=== PATIENT | male | born 1990 | race Caucasian/White ===

== ENCOUNTER → 2016-09-06 | Emergency (ER) | payer MEDICAID ==
[~2016-09-06] VITALS: Ht 167.6 cm; Wt 73.0 kg
[~2016-09-06] MED LIST: AZITHROMYCIN 250 MG TAB PO ONE; CEFTRIAXONE 250 MG INJ IM STA; CEFTRIAXONE 250 MG INJ IVPB STA; CEFTRIAXONE 500 MG INJ IVPB ONE; CIPR500T4 PO; HYDR-906 PO; ONDA4TAB14 PO; ONDANSETRON 4 MG INJ IV STA; SOD CHLORIDE 0.9% 1,000 ML IV STA; morphine 4 MG/ML VIAL IV STA
[2016-09-06 20:47] VITALS: Ht 167.6 cm; Wt 73.0 kg
[2016-09-06 21:56] LABS: ADD UMIC YES; URINE BILIRUBIN (Dip) NEGATIVE (NEGATIVE); URINE BLOOD (Dip) NEGATIVE (NEGATIVE); URINE GLUCOSE (Dip) NEGATIVE (NEGATIVE); URINE KETONES (Dip) NEGATIVE (NEGATIVE); URINE LEUKOCYTE ESTERASE (Dip) TRACE (NEGATIVE); URINE NITRITE (Dip) NEGATIVE (NEGATIVE); URINE TOTAL PROTEIN (Dip) NEGATIVE (NEGATIVE); URINE UROBILINOGEN (Dip) 0.2 E.U./dL (0.1-1.0)
[2016-09-06 22:06] LABS: URINE COLOR YELLOW (YELLOW)
[2016-09-06 22:08] LABS: BACTERIA,URINE FEW; MUCUS,URINE FEW; TRANSITIONAL EPI CELLS,URINE FEW; URINE RBCS 0-2 /HPF (0)
[2016-09-06 22:18] LABS: BASOPHIL # 0.1 10^3/ul (0.0-0.1); BASOPHILS % 0.3 % (0.0-2.0); EOSINOPHILS # 0.2 10^3/ul (0.0-0.5); EOSINOPHILS % 1.1 % (0.0-7.0); HEMATOCRIT 46.3 % (42.0-52.0); HEMOGLOBIN 15.7 g/dl (14.0-18.0); LYMPHOCYTES # 1.9 10^3/ul (0.8-2.9); LYMPHOCYTES % 9.2 % (15.0-51.0); MEAN CORPUSCULAR HEMOGLOBIN 28.4 pg (29.0-33.0); MEAN CORPUSCULAR HGB CONC 33.9 g/dl (32.0-37.0); MEAN CORPUSCULAR VOLUME 83.8 fl (82.0-101.0); MEAN PLATELET VOLUME 7.7 fl (7.4-10.4); MONOCYTE # 1.1 10^3/ul (0.3-0.9); MONOCYTES % 5.7 % (0.0-11.0); NEUTROPHIL # 16.9 10^3/ul (1.6-7.5); NEUTROPHILS % 83.7 % (39.0-77.0); PLATELET COUNT 261 10^3/UL (140-440); RED BLOOD COUNT 5.52 10^6/ul (4.70-6.10); RED CELL DISTRIBUTION WIDTH 13.5 % (11.5-14.5); UNCORRECTED WBC 20.2 10^3/ul (4.8-10.8); WHITE BLOOD COUNT 20.2 10^3/ul (4.8-10.8)
[2016-09-06 22:25] LABS: CONDITION 1; LH ANALYZER COMMENTS 1; SUSPECT 1
[2016-09-06 22:29] LABS: ALBUMIN 5.1 g/dl (3.3-4.9)
[2016-09-06 22:30] LABS: POTASSIUM 4.8 mmol/L (3.5-5.1)
[2016-09-06 22:32] LABS: BILIRUBIN,INDIRECT 0.3 mg/dl (0-1.1); BILIRUBIN,TOTAL 0.3 mg/dl (0.2-1.3); CREATININE 0.71 mg/dl (0.61-1.24)
[2016-09-06 22:33] LABS: ALBUMIN/GLOBULIN RATIO 1.08; TOTAL PROTEIN 9.8 g/dl (6.1-8.1)
--- NOTE | 2016-09-06 22:51 | RADRPT ---
PROCEDURE: CT Abdomen and Pelvis without contrast CLINICAL INDICATION: Abdominal pain TECHNIQUE: Transaxial images were obtained through the abdomen and pelvis on a multi-slice scanner without the intravenous contrast administration. no oral contrast had previously been given. Sagitt al and coronal re-formations were subsequently reconstructed. One or more of the following dose reduction techniques were used: - Automated exposure control. - Adjustment of the mA and/or kV according to patient size. - Use of iterative reconstruction technique. Radiation dose: CTDIvol = 8.6 mGy; DLP = 533.03 mGy-cm. COMPARISON: 08/13/2012 FINDINGS: Lung bases: The visualized lung bases appear unremarkable. Liver: The liver is borderline enlarged with no focal lesion identified. Gallbladder: The wall is not thickened. No radiopaque stones are identified. Bile ducts: The intra and extrahepatic bile ducts are normal in caliber. Pancreas: Appears normal with no mass or inflammation evident. Spleen: Normal in size with no focal lesion. Adrenals: Normal with no mass identified. Kidneys, ureters and bladder: The kidneys are normal in size and there is no mass, pathological calc ification, or hydronephrosis evident. There is no perinephric stranding. The ureters are normal in c aliber and no ureteroliths are identified. The bladder appears unremarkable. Reproductive organs: The prostate is not enlarged. Stomach and bowel: The stomach is moderately distended with food debris. There is substantial stool in the colon but there is no evidence of bowel obstruction or inflammation. Appendix: A normal-appearing vermiform appendix is evident. Peritoneum: No free intraperitoneal fluid or air is identified. Aorta: Normal in caliber with no aneurysmal dilatation. IVC: Unremarkable. Lymph nodes: No pathologically enlarged nodes are identified. Osseous structures: The osseous elements appear intact. IMPRESSION: 1. Borderline hepatomegaly with no focal lesion. This is unchanged from the previous CT of 012. 2. The stomach remains moderately distended with food debris but there is no evidence of bowel obst ruction or inflammation with a normal-appearing vermiform appendix evident. 3. Again there is no evidence of urinary outflow obstruction or ureterolithiasis. The bladder appe ars normal. 4. Otherwise, stable and unremarkable CT scan of the abdomen and pelvis without contrast. Alisa Corado Physician Date Time Electronically viewed and signed by Alisa Corado Physician on 09/06/2016 22:50 RH/
[2016-09-06 23:09] VITALS: BP 144/85; PULSE 72; RESP 16; TEMP 98.4
--- NOTE | 2016-09-07 04:58 | ERD ---
ER Documentation Chief Complaint Date/Time DATE: 09/07/16 TIME: 04:53 Chief Complaint left sided abd pain since 1 hour ago today HPI This is a 25-year-old male presenting to the emergency room complaining of left sided abdominal pain that started a few hours prior to being seen. Patient complains of vomiting 5 times. He denies any diarrhea. He states his last bowel movement was earlier today than normal. Patient denies any medical problems. Denies taking any medications or drugs. He rates his pain 10 out of 10 ROS All systems reviewed and are negative except as per history of present illness. Medications Home Meds Active Scripts Ciprofloxacin Hcl* (Ciprofloxacin Hcl*) 500 Mg Tablet, 500 MG PO BID for 5 Days , TAB Prov:JAKI WALLER PA-C 09/06/16 Ondansetron (Ondansetron Odt) 4 Mg Tab.rapdis, 4 MG PO Q6H Y for NAUSEA AND/OR VOMITING, #20 TAB Prov:JAKI WALLER PA-C 09/06/16 Hydrocodone/Acetaminophen ([place] 5-325 Tablet) 1 Each Tablet, 1-2 TAB PO Q6H Y for PAIN, #20 TAB Prov:JAKI WALLER PA-C 09/06/16 Reported Medications [None] No Conflict Check 08/13/12 Allergies Allergies: Coded Allergies: No Known Allergy (Unverified , 08/13/12) PMhx/Soc Medical and Surgical Hx: pt denies Surgical Hx History of Surgery: No Anesthesia Reaction: No Hx Neurological Disorder: No Hx Respiratory Disorders: No Hx Cardiac Disorders: No Hx Psychiatric Problems: No Hx Miscellaneous Medical Probl: Yes (kidney stones) Hx Alcohol Use: Yes (OOC) Hx Substance Use: No Hx Tobacco Use: Yes Smoking Status: Current every day smoker Physical Exam Vitals Vital Signs Date Time Temp Pulse Resp B/P Pulse Ox O2 Delivery O2 Flow Rate FiO2 09/06/16 23:09 98.4 72 16 144/85 100 Room Air 09/06/16 20:47 96.4 66 20 172/90 100 Physical Exam GENERAL: well-developed/well-nourished, in no apparent distress, non-toxic appearing HENT: NC/AT, moist mucous membranes EYES: Conjunctiva normal NECK: Supple, no lymphadenopathy PULM: CTA bilaterally, no rales, rhonchi, or wheezing heard CV: Normal S1S2, RRR, good capillary refill GI: Soft, non-distended, tender to palpation in left lower quadrant Normal bowel sounds, no masses or organomegaly felt on exam No gross peritonitis, no bruits Negative Rovsing, negative Sylvester, negative McBurney's point, Negative CVAT BACK: No masses EXT: No clubbing, cyanosis, or edema NEURO: Alert and Orientated SKIN: Intact, normal turgor PSYCH: Normal mood and mentation Result Diagram: 09/06/16220409/06/162204 Results 24 hrs Laboratory Tests Test 09/06/16 21:45 09/06/16 22:05 Urine Bacteria FEW Urine Bilirubin NEGATIVE Urine Clarity CLEAR Urine Color YELLOW Urine Glucose NEGATIVE% Urine Hemoglobin NEGATIVE Urine Ketones NEGATIVE Urine Leukocyte Esterase TRACE Urine Microscopic RBC 0-2/HPF Urine Microscopic WBC 25-50/HPF Urine Mucus FEW Urine Nitrite NEGATIVE Urine Specific [place] >=1.030 Urine Total Protein NEGATIVE Urine Transitional Epithelial Cells FEW Urine Urobilinogen 0.2 E.U./dL Urine pH 5.5 Alanine Aminotransferase (ALT/SGPT) 53IU/L Albumin 5.1g/dl Albumin/Globulin Ratio 1.08 Alkaline Phosphatase 69IU/L Anion Gap 21 Aspartate Amino Transf (AST/SGOT) 34IU/L Basophils # 0.110^3/ul Basophils % 0.3% Blood Morphology Comment Blood Urea Nitrogen 21mg/dl Calcium Level 10.0mg/dl Carbon Dioxide Level 31mmol/L Chloride Level 98mmol/L Creatinine 0.71mg/dl Direct Bilirubin 0.00mg/dl Eosinophils # 0.210^3/ul Eosinophils % 1.1% Globulin 4.70g/dl Glucose Level 107mg/dl Hematocrit 46.3% Hemoglobin 15.7g/dl Indirect Bilirubin 0.3mg/dl Lipase 53U/L Lymphocytes # 1.910^3/ul Lymphocytes % 9.2% Mean Corpuscular Hemoglobin 28.4pg Mean Corpuscular Hemoglobin Concent 33.9g/dl Mean Corpuscular Volume 83.8fl Mean Platelet Volume 7.7fl Monocytes # 1.110^3/ul Monocytes % 5.7% Neutrophils # 16.910^3/ul Neutrophils % 83.7% Nucleated Red Blood Cells # 0.010^3/ul Nucleated Red Blood Cells % 0.0/100WBC Platelet Count 63467^3/UL Potassium Level 4.8mmol/L Red Blood Count 5.5210^6/ul Red Cell Distribution Width 13.5% Sodium Level 145mmol/L Total Bilirubin 0.3mg/dl Total Protein 9.8g/dl White Blood Count 20.210^3/ul Current Medications Medications (Trade) Dose Ordered Sig/Lexie Route PRN Reason Start Time Stop Time Status Last Admin Dose Admin Sodium Chloride (NS) 1,000 ml @ 1,000 mls/hr Q1H STAT IV 09/06/16 21:37 09/06/16 22:36 DC 09/06/16 22:08 Morphine Sulfate (morphine) 4 mg ONCE STAT IV 09/06/16 21:37 09/06/16 21:38 DC 09/06/16 22:09 Ondansetron HCl (Zofran Inj) 4 mg ONCE STAT IV 09/06/16 21:37 09/06/16 21:38 DC 09/06/16 22:09 Azithromycin (Zithromax) 1,000 mg ONCE ONCE PO 09/06/16 23:30 09/06/16 23:31 DC 09/06/16 23:46 Ceftriaxone Sodium (Rocephin) 500 mg ONCE ONCE IVPB 09/06/16 23:30 09/06/16 23:30 DC Ceftriaxone Sodium (Rocephin) 250 mg ONCE STAT IM 09/06/16 23:24 09/06/16 23:26 DC Ceftriaxone Sodium (Rocephin) 250 mg ONCE STAT IVPB 09/06/16 23:40 09/06/16 23:41 DC 09/06/16 23:46 Procedures/MDM This is a 25-year-old male presenting to the emergency department complaining of left-sided abdominal pain and vomiting, this is likely due to a gastroenteritis. I have a low suspicion for pancreatitis, cholelithiasis, cholecystitis, pyelonephritis. IV access was established, CBC showed an elevated white count of 20.2 likely due to stress reaction and infection. CMP did not show any evidence of significant renal, liver or electrolyte abnormalities. A urinalysis that showed trace leukocyte esterase with white blood cells. I have consulted Dr. Lucio who stated to treat him for urinary tract infection and STD. Patient was given morphine and Zofran in the ED, I have reassessed patient and he significantly feels better, is able to tolerate p.o. fluids. Patient was given azithromycin, ceftriaxone in the ED. He was given a prescription for Cipro for outpatient. A CT of the abdomen and pelvis was done and radiologist stated - CT abd and pelvis without contrast: 1. Borderline hepatomegaly with no focal lesion. This is unchanged from the previous CT of 08/13/2012. 2. The stomach remains moderately distended with food debris but there is no evidence of bowel obstruction or inflammation with a normal-appearing vermiform appendix evident. 3. Again there is no evidence of urinary outflow obstruction or ureterolithiasis. The bladder appears normal. 4. Otherwise, stable and unremarkable CT scan of the abdomen and pelvis without contrast. I have discussed with patient and family to follow-up with the primary care physician regarding the borderline hepatomegaly. Patient appears well with stable vital signs for discharge. Discussed to follow-up with the primary care physician. Discussed return the ER for any worsening symptoms. Patient understands and agrees with this plan. was consulted and agrees with plan above Departure Diagnosis: Primary Impression: Abdominal pain Abdominal location: unspecified location Qualified Code: R10.9 - Abdominal pain, unspecified location Condition: Fair Patient Instructions: Abdominal Pain, Diet, Vomiting Or Diarrhea [6Yr-Adult], Vomiting And Diarrhea, Nonspecific (Adult) Referrals: [facility] YOU HAVE RECEIVED A MEDICAL SCREENING EXAM AND THE RESULTS INDICATE THAT YOU DO NOT HAVE A CONDITION THAT REQUIRES URGENT TREATMENT IN THE EMERGENCY DEPARTMENT. FURTHER EVALUATION AND TREATMENT OF YOUR CONDITION CAN WAIT UNTIL YOU ARE SEEN IN YOUR DOCTORS OFFICE WITHIN THE NEXT 1-2 DAYS. IT IS YOUR RESPONSIBILITY TO MAKE AN APPOINTMENT FOR FOLOW-UP CARE. IF YOU HAVE A PRIMARY DOCTOR --you should call your primary doctor and schedule an appointment IF YOU DO NOT HAVE A PRIMARY DOCTOR YOU CAN CALL OUR PHYSICIAN REFERRAL HOTLINE AT IF YOU CAN NOT AFFORD TO SEE A PHYSICIAN YOU CAN CHOSE FROM THE FOLLOWING [facility] [address] [facility] [address] [facility]. [facility] [address] [facility] [address] [facility] [address] [facility]. [facility]. [address] [facility]. [facility] YOU HAVE RECEIVED A MEDICAL SCREENING EXAM AND THE RESULTS INDICATE THAT YOU DO NOT HAVE A CONDITION THAT REQUIRES URGENT TREATMENT IN THE EMERGENCY DEPARTMENT. FURTHER EVALUATION AND TREATMENT OF YOUR CONDITION CAN WAIT UNTIL YOU ARE SEEN IN YOUR DOCTORS OFFICE WITHIN THE NEXT 1-2 DAYS. IT IS YOUR RESPONSIBILITY TO MAKE AN APPOINTMENT FOR FOLOW-UP CARE. IF YOU HAVE A PRIMARY DOCTOR --you should call your primary doctor and schedule and appointment IF YOU DO NOT HAVE A PRIMARY DOCTOR YOU CAN CALL OUR PHYSICIAN REFERRAL HOTLINE AT . IF YOU CAN NOT AFFORD TO SEE A PHYSICIAN YOU CAN CHOSE FROM THE FOLLOWING [facility] INSTITUTIONS: [facility] [address] [place] [address] [facility] [address] [place] [address] [facility] [address] [place] [address] [facility] () Usyogi se harkins hecho un examen mdico de control que le indica que no est en easton condicin que requiera tratamiento urgente en el Departamento de Emergencia. Un estudio ms profundo y el tratamiento de ware condicin pueden esperar sin ningn riesgo hasta que usted sea atendida/o en el consultorio de ware mdico o easton cl francisco javier. Es responsabilidad suya arreglar easton mary para el seguimiento del pebbles. MANEJO DE CONDICIONES NO URGENTES EN EL FUTURO 1) Si usted tiene un mdico de atencin primaria: Usted debera llamar a ware mdico de atencin primaria antes de venir al departamento de emergencia. Despus de las horas de consultorio, ware doctor o ware asociado/a est disponible por telfono. El mdico o enfermero de baldo en el servicio telefnico puede asesorarle por jolie medio para atender el problema, o pebbles contrario se puede programar easton mary. 2) Si usted no tiene un mdico de atencin primaria: Llame al mdico o clnica de referencia que aparece abajo siomara las horas de consultorio para hacer easton mary para que le vean. CLINICAS: [facility] [phone] [facility] [phone] [facility] [phone] [facility] [phone] [facility] [phone] [address] [facility] [phone] [address] [facility]. [facility] () Usted se harkins hecho un examen mdico de control que le indica que no est en easton condicin que requiera tratamiento urgente en el Departamento de Emergencia. Un estudio ms profundo y el tratamiento de ware condicin pueden esperar sin ningn riesgo hasta que usted sea atendida/o en el consultorio de ware mdico o easton cl francisco javier. Es responsabilidad suya arreglar easton mary para el seguimiento del pebbles. MANEJO DE CONDICIONES NO URGENTES EN EL FUTURO 1) Si usted tiene un mdico de atencin primaria: Usted debera llamar a ware mdico de atencin primaria antes de venir al departamento de emergencia. Despus de las horas de consultorio, ware doctor o ware asociado/a est disponible por telfono. El mdico o enfermero de baldo en el servicio telefnico puede asesorarle por jolie medio para atender el problema, o pebbles contrario se puede programar easton mary. 2) Si usted no tiene un mdico de atencin primaria: Llame al mdico o condado institucions de referencia que aparece abajo siomara las horas de consultorio para hacer easton mary para que le vean. SI USTED NO PUEDE PAGAR PARA LUCERO UN MEDICO puede ir a: [facility] [address] [place] [address] [facility] [address] [place] [address] [facility] [address] [place] [address] [facility] [address] [place], [place] [id number] Additional Instructions: FOLLOW UP WITH YOUR PRIMARY CARE PHYSICIAN TOMORROW.Return to this facility if you are not improving as expected. Take all medicines as directed. Return to this facility if you are not improving as expected. You have been given a medicine which may cause drowsiness.DO NOT DRIVE OR OPERATE DANGEROUS MACHINERY while taking this medicine! JAKI WALLER PA-C Sep 07, 2016 04:58
== END | disposition home or self-care (01) ==
LOC: FTE 20:39
DX: R10.32 Left lower quadrant pain (principal); R11.10 Vomiting, unspecified; F17.210 Nicotine dependence, cigarettes, uncomplicated
CPT/HCPCS: 36415; 74176; 80053; 81001; 81003; 83690; 85025; 96361; 96374; 96375; J0696; J2270; J2405; J7030; Z7502; Z7610

== ENCOUNTER 2017-02-11 17:46 | Emergency (ER) | payer SELFPAY ==
[~2017-02-11] VITALS: Ht 157.5 cm; Wt 67.0 kg
[~2017-02-11 17:46] MED LIST changes: -AZITHROMYCIN 250 MG TAB PO ONE; -CEFTRIAXONE 250 MG INJ IM STA; -CEFTRIAXONE 250 MG INJ IVPB STA; -CEFTRIAXONE 500 MG INJ IVPB ONE; -ONDANSETRON 4 MG INJ IV STA; -SOD CHLORIDE 0.9% 1,000 ML IV STA; -morphine 4 MG/ML VIAL IV STA
[2017-02-11 17:52] VITALS: Ht 157.5 cm; Wt 67.0 kg
== END 2017-02-11 20:39 | disposition left against medical advice (07) ==
LOC: E/R 17:46
DX: Z53.21 Procedure and treatment not carried out due to patient leaving prior to being seen by health care provider (principal)

== ENCOUNTER 2017-08-21 22:10 | Emergency (ER) | payer MEDICAID, OTHER ==
[~2017-08-21] VITALS: Ht 172.7 cm; Wt 73.7 kg
[2017-08-21 22:18] VITALS: Ht 172.7 cm; Wt 73.7 kg
[2017-08-21] MEDS ORDERED: SOD CHLORIDE 0.9% 1,000 ML IV STA (22:40)
[2017-08-21] MEDS ORDERED: ONDANSETRON 4 MG INJ IV STA (22:40)
[2017-08-21] MEDS ORDERED: KETOROLAC 30 MG INJ IV STA (22:40)
--- NOTE | 2017-08-21 22:40 | ERD ---
ER Documentation Chief Complaint Chief Complaint ap HPI The patient is a 26-year-old male presenting to the ER because of left-sided abdominal pain that began today, has similar symptoms previously, c/o subjective fever, vomiting initially food and phlegm. He denies chill, neck pain , chest pain, dysuria, diarrhea, constipation. He does not smoke, drinks socially, denies illicit drug Medical history: History of choledocholithiasis Past surgical history: History of ERCP ROS All systems reviewed and are negative except as per history of present illness. Medications Home Meds Active Scripts Ciprofloxacin Hcl* (Ciprofloxacin Hcl*) 500 Mg Tablet, 500 MG PO BID for 5 Days , TAB Prov:JAKI WALLER PA-C 09/06/16 Ondansetron (Ondansetron Odt) 4 Mg Tab.rapdis, 4 MG PO Q6H Y for NAUSEA AND/OR VOMITING, #20 TAB Prov:JAKI WALLER PA-C 09/06/16 Hydrocodone/Acetaminophen ([place] 5-325 Tablet) 1 Each Tablet, 1-2 TAB PO Q6H Y for PAIN, #20 TAB Prov:JAKI WALLER PA-C 09/06/16 Reported Medications [None] No Conflict Check 08/13/12 Allergies Allergies: Coded Allergies: No Known Allergy (Unverified , 08/13/12) PMhx/Soc Medical and Surgical Hx: pt denies Medical Hx, pt denies Surgical Hx History of Surgery: No Anesthesia Reaction: No Hx Neurological Disorder: No Hx Respiratory Disorders: No Hx Cardiac Disorders: No Hx Psychiatric Problems: No Hx Miscellaneous Medical Probl: Yes (kidney stones) Hx Alcohol Use: Yes (OOC) Hx Substance Use: No Hx Tobacco Use: Yes Smoking Status: Light tobacco smoker Physical Exam Vitals Vital Signs Date Time Temp Pulse Resp B/P Pulse Ox O2 Delivery O2 Flow Rate FiO2 08/22/17 02:22 72 16 127/72 98 Room Air 08/21/17 22:18 98.7 68 20 144/70 99 Physical Exam Const: No acute distress. Head: Atraumatic. Eyes: Normal Conjunctiva. ENT: Normal External Ears, Nose and Mouth. Neck: Full range of motion. No meningismus. Resp: Clear to auscultation bilaterally. Cardio: Regular rate and rhythm. Abd: Soft, non distended, normal bowel sounds, vague and moderate RUQ , left-sided abdominal tenderness, no RLQ, rigidity, rebound, CVA tenderness Skin: No petechiae or rashes. Back: No midline or flank tenderness. Ext: No cyanosis, or edema. Neur: Awake and alert. No focal deficit Psych: Normal Mood and Affect. Result Diagram: 08/21/17224908/21/17 2250 Results 24 hrs Laboratory Tests Test 08/21/17 22:50 White Blood Count 11.910^3/ul Red Blood Count 4.8410^6/ul Hemoglobin 13.5g/dl Hematocrit 40.5% Mean Corpuscular Volume 83.7fl Mean Corpuscular Hemoglobin 27.9pg Mean Corpuscular Hemoglobin Concent 33.3g/dl Red Cell Distribution Width 12.9% Platelet Count 30769^3/UL Mean Platelet Volume 9.5fl Neutrophils % 76.0% Lymphocytes % 16.6% Monocytes % 6.6% Eosinophils % 0.0% Basophils % 0.3% Nucleated Red Blood Cells % 0.0/100WBC Neutrophils # 9.010^3/ul Lymphocytes # 2.010^3/ul Monocytes # 0.810^3/ul Eosinophils # 0.010^3/ul Basophils # 0.010^3/ul Nucleated Red Blood Cells # 0.010^3/ul Urine Color YELLOW Urine Clarity CLEAR Urine pH 5.0 Urine Specific [place] 1.031 Urine Ketones 2+mg/dL Urine Nitrite NEGATIVEmg/dL Urine Bilirubin NEGATIVEmg/dL Urine Urobilinogen NEGATIVEmg/dL Urine Leukocyte Esterase NEGATIVELeu/ul Urine Microscopic RBC 0/HPF Urine Microscopic WBC 2/HPF Urine Mucus MODERATE/HPF Urine Hemoglobin 1+mg/dL Urine Glucose 1+mg/dL Urine Total Protein 1+mg/dl Sodium Level 139mmol/L Potassium Level 3.9mmol/L Chloride Level 98mmol/L Carbon Dioxide Level 25mmol/L Anion Gap 20 Blood Urea Nitrogen 18mg/dl Creatinine 0.71mg/dl Glucose Level 131mg/dl Calcium Level 9.7mg/dl Total Bilirubin 0.5mg/dl Direct Bilirubin 0.00mg/dl Indirect Bilirubin 0.5mg/dl Aspartate Amino Transf (AST/SGOT) 34IU/L Alanine Aminotransferase (ALT/SGPT) 62IU/L Alkaline Phosphatase 117IU/L Total Protein 9.7g/dl Albumin 4.7g/dl Globulin 5.00g/dl Albumin/Globulin Ratio 0.94 Lipase 75U/L Urine Opiates Screen Negative Urine Barbiturates Negative Urine Amphetamines Screen Negative Urine Benzodiazepines Screen Negative Urine Cocaine Screen Negative Urine Cannabinoids Negative Ethyl Alcohol Level < 10.0mg/dl Current Medications Medications (Trade) Dose Ordered Sig/Lexie Route PRN Reason Start Time Stop Time Status Last Admin Dose Admin Sodium Chloride (NS) 1,000 ml @ 1,000 mls/hr Q1H STAT IV 08/21/17 22:40 08/21/17 23:39 DC 08/21/17 22:56 Ondansetron HCl (Zofran Inj) 4 mg ONCE STAT IV 08/21/17 22:40 08/21/17 22:43 DC 08/21/17 22:56 Ketorolac Tromethamine (Toradol) 30 mg ONCE STAT IV 08/21/17 22:40 08/21/17 22:43 DC 08/21/17 22:56 Procedures/[place] [address] Radiology Main Line: [phone] DIAGNOSTIC IMAGING REPORT Patient: MEGA GRAY : 1990 Age: 26 Sex: M [id number] DOS: 08/21/17 2240 Ordering MD: LISSETTE BREWSTER MD Location: [facility] Room/Bed: PROCEDURE: CT abdomen and pelvis without contrast. CLINICAL INDICATION: Abdominal pain, nausea and vomiting for 1 day TECHNIQUE: CT scan of the abdomen and pelvis without contrast was performed. Sagittal and coronal reformatted images were obtained from the axial source images. One or more of the following dose reduction techniques were used: Automated exposure control, adjustment of the mA and/or kV according to patient size, use of iterative reconstruction technique. CTDI = 7.45 mGy; DLP = 420.31 mGy-cm COMPARISON: Ultrasound 08/21/2017. CT 09/06/2016 FINDINGS: Visualized lower thorax: The lung bases are clear. There is no evidence for pleural effusion. Liver, gallbladder, pancreas and spleen: The liver is normal and size, contour and attenuation. There is no evidence for a liver mass or ductal dilatation. The gallbladder is unremarkable. No common bile duct abnormality is demonstrated. The pancreas is unremarkable. The spleen is normal in size. Adrenal glands and genitourinary system: The adrenal glands are normal bilaterally. The kidneys are normal and size, contour and attenuation with no evidence for masses, calculi or hydronephrosis. The ureters are unremarkable. No urinary bladder abnormality is demonstrated. The prostate gland is normal in size. The scrotum shows no abnormality. Gastrointestinal system: The stomach is normal in caliber with no abnormality of significance. The small bowel is normal in caliber with no ileus, obstruction or wall thickening. The appendix and surrounding fat are within the limits of normal. The colon shows no evidence for wall thickening or acute abnormality. There is no evidence for colitis or diverticulitis. Peritoneum, retroperitoneum, lymph nodes and vessels: The abdominal aorta is normal in caliber. No pneumoperitoneum is present. The inferior vena cava is unremarkable. There is no evidence for adenopathy or mass. There is no ascites. Osseous structures and musculoskeletal findings: There is no fracture, lytic or blastic lesion. No muscular abnormality or soft tissue pathology is present. RPTAT:HJJR IMPRESSION: No evidence of acute intra-abdominal or intrapelvic pathology to help explain the patient's provided history. Physician Radhames Date Time Electronically viewed and signed by Physician Radhames on 08/22/2017 00:50 JR/ CC: LISSETTE BREWSTER MD [place] [address] Radiology Main Line: [phone] DIAGNOSTIC IMAGING REPORT Patient: MEGA GRAY : 1990 Age: 26 Sex: M MR #: [id number] DOS: 08/21/17 2247 Ordering MD: LISSETTE BREWSTER MD Location: [facility] Room/Bed: PROCEDURE: Abdominal ultrasound, limited. CLINICAL INDICATION: Abdominal pain. TECHNIQUE: Multiple real-time images were acquired of the patient's right upper abdomen utilizing a high resolution transducer. COMPARISON: 08/13/2012. FINDINGS: The liver demonstrates normal echogenicity and size measuring 15.3 cm. There is no focal mass or intrahepatic biliary ductal dilatation. The portal vein is patent. The gallbladder is not distended. No gallstones are identified. There is no pericholecystic fluid or gallbladder wall thickening. The common bile duct measures 2.6 mm in maximal dimension. The visualized portions of the pancreas are unremarkable. No free fluid is identified. The right kidney is normal size and echogenicity measuring 10.2 cm. There is no focal renal mass or echogenic calculus identified. There is no obstructive uropathy. IMPRESSION: Unremarkable right upper abdominal ultrasound. .Christian Jimenez MD, MD Date Time Electronically viewed and signed by .Christian Jimenez MD, MD on 08/22/2017 00:09 .T/ CC: LISSETTE BREWSTER MD MEDICAL MAKING DECISION: The patient is a 26-year-old male, presenting with acute abdominal pain of unclear etiology, he was treated with 1 L normal saline clinical dehydration, Toradol and 30 mg IV for pain, Zofran 4 mg IV for nausea with good response The differential diagnoses considered include but are not limited to cholelithiasis, cholecystitis, cystitis, pancreatitis, hepatitis, gastritis, peptic ulcer disease, gastric ulcer, appendicitis, diverticulitis, cholangitis, choledocholithiasis, partial small bowel obstruction. Departure Diagnosis: Primary Impression: Abdominal pain Condition: Good Comments I discussed the findings with the patient. I advised the patient to return in 8 hr for re-eval The patient's blood pressure was elevated (>120/80) but appears stable without evidence of hypertension emergency or urgency. The patient was counseled about the risks of hypertension and urged to pursue outpatient monitoring and therapy within a week with their primary care physician. Disclaimer: Inadvertent spelling and grammatical errors are likely due to EHR/ dictation software use and do not reflect on the overall quality of patient care. Also, please note that the electronic time recorded on this note does not necessarily reflect the actual time of the patient encounter. LISSETTE BREWSTER MD Aug 21, 2017 22:40
[2017-08-21 23:11] LABS: BASOPHILS % 0.3 % (0.0-2.0); HEMATOCRIT 40.5 % (42.0-52.0); HEMOGLOBIN 13.5 g/dl (14.0-18.0); LYMPHOCYTES % 16.6 % (15.0-51.0); MEAN CORPUSCULAR HEMOGLOBIN 27.9 pg (29.0-33.0); MEAN CORPUSCULAR HGB CONC 33.3 g/dl (32.0-37.0); MEAN CORPUSCULAR VOLUME 83.7 fl (82.0-101.0); MEAN PLATELET VOLUME 9.5 fl (7.4-10.4); MONOCYTE # 0.8 10^3/ul (0.3-0.9); MONOCYTES % 6.6 % (0.0-11.0); PLATELET COUNT 364 10^3/UL (140-415); RED BLOOD COUNT 4.84 10^6/ul (4.70-6.10); RED CELL DISTRIBUTION WIDTH 12.9 % (11.5-14.5); WHITE BLOOD COUNT 11.9 10^3/ul (4.8-10.8)
[2017-08-21 23:24] LABS: ADD UMIC YES; UR ASCORBIC ACID 40 mg/dL (NEGATIVE); UR BILIRUBIN (Dip) NEGATIVE (NEGATIVE); UR BLOOD (Dip) 1+ mg/dL (NEGATIVE); UR CLARITY CLEAR (CLEAR); UR COLOR YELLOW (YELLOW); UR GLUCOSE (Dip) 1+ mg/dL (NEGATIVE); UR KETONES (Dip) 2+ mg/dL (NEGATIVE); UR LEUKOCYTE ESTERASE (Dip) NEGATIVE Leu/ul (NEGATIVE); UR MUCUS MODERATE /HPF (NONE SEEN); UR NITRITE (Dip) NEGATIVE (NEGATIVE); UR RBC 0 /HPF (0-5); UR SPECIFIC GRAVITY (Dip) 1.031 (1.003-1.030); UR TOTAL PROTEIN (Dip) 1+ mg/dl (NEGATIVE); UR UROBILINOGEN (Dip) NEGATIVE (NEGATIVE)
[2017-08-21 23:31] LABS: ALANINE AMINOTRANSFERASE 62 IU/L (13-69); ALBUMIN 4.7 g/dl (3.3-4.9); ALBUMIN/GLOBULIN RATIO 0.94; ALKALINE PHOSPHATASE 117 IU/L (42-121); ANION GAP 20 (8-16); ASPARTATE AMINO TRANSFERASE 34 IU/L (15-46); BILIRUBIN,INDIRECT 0.5 mg/dl (0-1.1); BILIRUBIN,TOTAL 0.5 mg/dl (0.2-1.3); BLOOD UREA NITROGEN 18 mg/dl (7-20); CALCIUM 9.7 mg/dl (8.4-10.2); CARBON DIOXIDE 25 mmol/L (21-31); CHLORIDE 98 mmol/L (97-110); CREATININE 0.71 mg/dl (0.61-1.24); GLUCOSE 131 mg/dl (70-220); POTASSIUM 3.9 mmol/L (3.5-5.1); SODIUM 139 mmol/L (135-144); TOTAL PROTEIN 9.7 g/dl (6.1-8.1)
[2017-08-21 23:35] LABS: ETHANOL < 10.0 mg/dl
[2017-08-21 23:43] LABS: CANNABINOIDS Negative (NEGATIVE)
[2017-08-21 23:47] LABS: BARBITURATES Negative (NEGATIVE); BENZODIAZEPINES Negative (NEGATIVE); COCAINE Negative (NEGATIVE); OPIATES Negative (NEGATIVE)
--- NOTE | 2017-08-22 00:10 | RADRPT ---
PROCEDURE: Abdominal ultrasound, limited. CLINICAL INDICATION: Abdominal pain. TECHNIQUE: Multiple real-time images were acquired of the patient's right upper abdomen utilizing a high resolution transducer. COMPARISON: 08/13/2012. FINDINGS: The liver demonstrates normal echogenicity and size measuring 15.3 cm. There is no focal mass or in trahepatic biliary ductal dilatation. The portal vein is patent. The gallbladder is not distended. No gallstones are identified. There is no pericholecystic fluid or gallbladder wall thickening. The common bile duct measures 2.6 mm in maximal dimension. The visualized portions of the pancreas are unremarkable. No free fluid is identified. The right kidney is normal size and echogenicity measuring 10.2 cm. There is no focal renal mass or echogenic calculus identified. There is no obstructive uropathy. IMPRESSION: Unremarkable right upper abdominal ultrasound. .Christian Jimenez MD, Date Time Electronically viewed and signed by .Christian Jimenez MD, MD on 08/22/2017 00:09 .T/
--- NOTE | 2017-08-22 00:51 | RADRPT ---
PROCEDURE: CT abdomen and pelvis without contrast. CLINICAL INDICATION: Abdominal pain, nausea and vomiting for 1 day TECHNIQUE: CT scan of the abdomen and pelvis without contrast was performed. Sagittal and coronal reformatted images were obtained from the axial source images. One or more of the following dose re duction techniques were used: Automated exposure control, adjustment of the mA and/or kV according t o patient size, use of iterative reconstruction technique. CTDI = 7.45 mGy; DLP = 420.31 mGy-cm COMPARISON: Ultrasound 08/21/2017. CT 09/06/2016 FINDINGS: Visualized lower thorax: The lung bases are clear. There is no evidence for pleural effusion. Liver, gallbladder, pancreas and spleen: The liver is normal and size, contour and attenuation. Th ere is no evidence for a liver mass or ductal dilatation. The gallbladder is unremarkable. No comm on bile duct abnormality is demonstrated. The pancreas is unremarkable. The spleen is normal in si ze. Adrenal glands and genitourinary system: The adrenal glands are normal bilaterally. The kidneys are normal and size, contour and attenuation with no evidence for masses, calculi or hydronephrosis. T he ureters are unremarkable. No urinary bladder abnormality is demonstrated. The prostate gland is normal in size. The scrotum shows no abnormality. Gastrointestinal system: The stomach is normal in caliber with no abnormality of significance. The small bowel is normal in caliber with no ileus, obstruction or wall thickening. The appendix and s urrounding fat are within the limits of normal. The colon shows no evidence for wall thickening or acute abnormality. There is no evidence for colitis or diverticulitis. Peritoneum, retroperitoneum, lymph nodes and vessels: The abdominal aorta is normal in caliber. No pneumoperitoneum is present. The inferior vena cava is unremarkable. There is no evidence for dali opathy or mass. There is no ascites. Osseous structures and musculoskeletal findings: There is no fracture, lytic or blastic lesion. No muscular abnormality or soft tissue pathology is present. RPTAT:HJJR IMPRESSION: No evidence of acute intra-abdominal or intrapelvic pathology to help explain the patient's provided history. Kota Uribe, Physician Date Time Electronically viewed and signed by Kota Uribe Physician on 08/22/2017 00:50 /
[2017-08-22 02:22] VITALS: BP 127/72; PULSE 72; RESP 16
== END 2017-08-22 02:25 | disposition home or self-care (01) ==
LOC: FTE 22:10
DX: R10.84 Generalized abdominal pain (principal); F17.210 Nicotine dependence, cigarettes, uncomplicated
CPT/HCPCS: 36415; 74176; 76705; 80053; 80306; 80307; 81001; 83690; 85025; 96374; 96375; J1885; J2405; J7030; Z7502

== ENCOUNTER 2017-08-22 11:56 | Emergency (ER) | payer OTHER ==
[~2017-08-22] VITALS: Wt 75.6 kg
--- NOTE | 2017-08-22 12:25 | ERD ---
ER Documentation Chief Complaint Chief Complaint PT HERE FOR REEVALUATION ON ABD PAIN, STATES NO PAIN AT THIS TIME HPI This is a 26-year-old male who presents emergency department today for a recheck of abdominal pain that he had yesterday. Patient was instructed to return in 8 hours for recheck. Patient denies any abdominal pain at this time, fevers, vomiting or diarrhea. She has no complaints at this time. ROS All systems reviewed and are negative except as per history of present illness. Medications Home Meds Active Scripts Ciprofloxacin Hcl* (Ciprofloxacin Hcl*) 500 Mg Tablet, 500 MG PO BID for 5 Days , TAB Prov:JAKI WALLER PA-C 09/06/16 Ondansetron (Ondansetron Odt) 4 Mg Tab.rapdis, 4 MG PO Q6H Y for NAUSEA AND/OR VOMITING, #20 TAB Prov:JAKI WALLER PA-C 09/06/16 Hydrocodone/Acetaminophen ([place] 5-325 Tablet) 1 Each Tablet, 1-2 TAB PO Q6H Y for PAIN, #20 TAB Prov:JAKI WALLER PA-C 09/06/16 Reported Medications [None] No Conflict Check 08/13/12 Allergies Allergies: Coded Allergies: No Known Allergy (Unverified , 08/13/12) PMhx/Soc History of Surgery: No Anesthesia Reaction: No Hx Neurological Disorder: No Hx Respiratory Disorders: No Hx Cardiac Disorders: No Hx Psychiatric Problems: No Hx Miscellaneous Medical Probl: Yes (kidney stones) Hx Alcohol Use: Yes (OOC) Hx Substance Use: No Hx Tobacco Use: Yes Smoking Status: Current every day smoker Physical Exam Vitals Vital Signs Date Time Temp Pulse Resp B/P Pulse Ox O2 Delivery O2 Flow Rate FiO2 08/22/17 11:59 98.4 97 17 112/86 98 Physical Exam Const: NAD Head: Atraumatic Eyes: Normal Conjunctiva ENT: Normal External Ears, Nose and Mouth. Neck: Full range of motion..~ No meningismus. Resp: Clear to auscultation bilaterally Cardio: Regular rate and rhythm, no murmurs Abd: Soft, non tender, non distended. Normal bowel sounds. No right upper quadrant tenderness. No tenderness to McBurney's. Skin: No petechiae or rashes Neur: Awake and alert Psych: Normal Mood and Affect Procedures/MDM This 26-year-old male who presents to the emergency department today for a recheck of abdominal pain. Patient was instructed return in 8 hours for a recheck. Upon review of patient's medical records he was seen here yesterday for subjective fevers at home, vomiting, abdominal pain. Patient had a negative CT scan that was unremarkable. He also had a right upper quadrant ultrasound was unremarkable. This time patient denies any complaints. His physical exam is benign. This time I have low suspicion for acute surgical abdomen, sepsis, severe acute bacterial infection. Patient is afebrile and otherwise well-appearing. At this time the patient is stable for discharge and outpatient management. Patient should follow up with their PCP in the next 1-2 days. They may return to the emergency department sooner for any persistent or worsening of symptoms. Patient understood and agreed with the plan. Departure Diagnosis: Primary Impression: Follow-up exam Condition: Fair Patient Instructions: Abdominal Pain, Unkown Cause, (Male) Referrals: [facility] YOU HAVE RECEIVED A MEDICAL SCREENING EXAM AND THE RESULTS INDICATE THAT YOU DO NOT HAVE A CONDITION THAT REQUIRES URGENT TREATMENT IN THE EMERGENCY DEPARTMENT. FURTHER EVALUATION AND TREATMENT OF YOUR CONDITION CAN WAIT UNTIL YOU ARE SEEN IN YOUR DOCTORS OFFICE WITHIN THE NEXT 1-2 DAYS. IT IS YOUR RESPONSIBILITY TO MAKE AN APPOINTMENT FOR FOLOW-UP CARE. IF YOU HAVE A PRIMARY DOCTOR --you should call your primary doctor and schedule an appointment IF YOU DO NOT HAVE A PRIMARY DOCTOR YOU CAN CALL OUR PHYSICIAN REFERRAL HOTLINE AT IF YOU CAN NOT AFFORD TO SEE A PHYSICIAN YOU CAN CHOSE FROM THE FOLLOWING [facility] [address] [facility] [address] [facility] [address] [facility] [address] [facility] [address] [facility]. [facility]. [address] Additional Instructions: Call your primary care doctor TOMORROW for an appointment during the next 1-2 days.See the doctor sooner or return here if your condition worsens before your appointment time. Take Tylenol or Motrin if you have any pain PAT HOUSTON PA-C Aug 22, 2017 12:25
== END 2017-08-22 12:25 | disposition home or self-care (01) ==
LOC: FTE 11:56
DX: R10.9 Unspecified abdominal pain (principal); F17.210 Nicotine dependence, cigarettes, uncomplicated
CPT/HCPCS: 99282